=== PATIENT | female | born 1975 | race Caucasian/White ===

== ENCOUNTER 2017-11-08 19:00 | Emergency (ER) | payer BC ==
[~2017-11-08] VITALS: Ht 175.3 cm; Wt 74.1 kg
[~2017-11-08 19:00] MED LIST: ALBUAER2 INH; BCPILLS PO; MELA1TAB49 PO; PROP10TA7 PO; SNG10 PO; SPIR25TA PO; SPT/ PO; TRAM-10 PO; TZRCR160 TOP
[2017-11-08 19:15] VITALS: TEMP 36.7; Ht 175.3 cm; Wt 74.1 kg
[2017-11-08] MEDS ORDERED: ASPIRIN 81 MG CHEW PO STA (20:37)
--- NOTE | 2017-11-08 20:47 | EMERGENCY ROOM VISIT NOTE ---
History Report prepared by Portia: Conrad Layne Under the Supervision of: Dr. Bam Richmond M.D. First contact with patient: 20:19 Chief Complaint: SHORTNESS OF BREATH Stated Complaint: SOB Nursing Triage Summary: patient has been having SOB for about a week. started with dry cough in the middle of the night. Sunday spoke to Josue. started on prednisone and abluterol thougth it was asthma. 48 hours went to PCP and told to continue started a z pack. today continues to feel like she is unable to catch her breath. steroids are done and she still feels like she is unable to catch her breath or constantly feels like she is walking up the stairs. family history of blood clots. History of Present Illness The patient is a 42 year old female who presents to the Emergency Room with complaints of constant shortness of breath beginning a week ago. The patient states her symptoms began with a dry cough that prevented her from sleeping. 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 The patient notes she would get extremely short of breath. She states she went to the walk-in clinic and was told it was a three hour wait. The patient reports she did not get evaluated and called a telehealth doctor through her insurance. She notes she has a history of asthma. The patient states since she was not wheezing, she was given a 6 day cycle of prednisone and told to use her inhaler four times a day. She reports she followed up with her PCP and was told to continue the prednisone and inhaler. The patient notes she was given a Z-pack just to be safe. She states she finished the prednisone today, and she is still having symptoms. The patient reports her pain is more in her back, and she occasionally gets lightheaded. She notes she has taken control for the past 27 years. The patient states she had a BMP, CBC, and pertussis test completed at her PCP. Review of her CBC and BMP completed on show a WBC of 14.8 with 67.5% neutrophile, otherwise, the results were within normal limits. She reports her mother has a history of blood clots; the first time was from control, and the second time was from a car accident. The patient notes a history of arthritis. She denies chest pain, coughing up blood, recent surgery, recent travel, being tested for clotting ability, loss of consciousness, blood in stool, blood in urine, and the chance of . Source of History: patient Onset: a week ago Position: other (global) Quality: other (SOB) Timing: constant Modifying Factors (Worsening): exertion Associated Symptoms: + cough, + back pain, No LOC, No chest pain Note: Associated symptoms: mild lightheadedness Denies: wheezing, coughing up blood, recent surgery, recent travel, being tested for clotting ability, loss of consciousness, blood in stool, blood in urine, and the chance of Review of Systems See HPI for pertinent positives and negatives. A total of ten systems were reviewed and were otherwise negative. Past Medical & Surgical Medical Problems: (1) Arthritis (2) Asthma Family History Blood clots Social History Smoking Status: Never Smoker Alcohol Use: occasionally Housing Status: lives with family Current/Historical Medications Scheduled Albuterol (Ventolin), 2 PUFFS INH QID PRN Azithromycin (Azithromycin), 250 MG PO DIRECTED Control Pills ( Control Pills), 1 TAB PO DAILY Montelukast (Singulair *), 10 MG PO DAILY Spironolactone (Spironolactone), 25 MG PO QPM Scheduled PRN Albuterol Sulf (Albuterol Sulfate), 2.5 AMP NEB Q4 PRN for SOB/Wheezing Benzonatate (Tessalon Perles), 1 CAP PO TID PRN for Cough Cyclobenzaprine HCl (Cyclobenzaprine HCl), 10 MG PO DAILY PRN for Muscle Spasms Diclofenac Potassium (Diclofenac Potassium), 50 MG PO Q8 PRN for Pain Rizatriptan Benzoate (Rizatriptan Benzoate), 10 MG PO DIRECTED PRN for Headache Allergies Coded Allergies: Propranolol (Unverified Allergy, Unknown, THROAT CLOSES, 11/08/17) Physical Exam Vital Signs Date Time Temp Pulse Resp B/P (MAP) Pulse Ox O2 Delivery O2 Flow Rate FiO2 11/09/17 00:10 73 16 148/84 99 11/08/17 22:54 78 18 164/90 98 Room Air 11/08/17 21:03 77 11/08/17 19:15 36.7 85 20 185/97 97 Room Air Physical Exam Physical Exam GENERAL: She is oriented to person, place, and time. She appears well- developed and well-nourished. She does not appear distressed. ____ HENT: Exam performed. Head: Normocephalic and atraumatic. Right Ear: External ear normal. No mastoid tenderness. Left Ear: External ear normal. No mastoid tenderness. Mouth/Throat: The oropharynx is clear and moist. No trismus in the jaw. No dental abscesses or uvula swelling. No oropharyngeal exudate or tonsillar abscesses. ____ EYES: Conjunctivae and EOM are normal. Pupils are equal, round, and reactive to light. Right eye exhibits no discharge. Left eye exhibits no discharge. No scleral icterus. ____ NECK: Normal range of motion. Neck supple. No JVD present. No spinous process tenderness present. No carotid bruit present. No rigidity. No tracheal deviation and normal range of motion present. No Brudzinski's sign and no Kernig 's sign noted. ____ CV: Normal rate, regular rhythm, normal heart sounds and intact distal pulses. There is no peripheral edema. Palpable radial pulses bue. ____ PULM/CHEST: Effort normal and breath sounds normal. No respiratory distress. No stridor. She has no wheezes. She has no rales. Chest Wall: She exhibits no tenderness. ____ ABD: The abdomen is soft. Bowel sounds are normal. She has no distension. No mass is present. There is no tenderness. There is no rebound, no guarding, no Miramontes's sign and no tenderness at McBurney's point. Rovsig negative MUSC/SKEL: Normal range of motion. There is no peripheral edema, tenderness or deformity. LYMPH: No cervical adenopathy. ____ NEURO: She is alert and oriented to person, place, and time. She has normal strength. No cranial nerve deficit or sensory deficit. Coordination and gait normal. GCS eye subscore is 4. GCS verbal subscore is 5. GCS motor subscore is 6. cerbellar tests wnl. ____ SKIN: Skin is warm and dry. She is not diaphoretic. ____ PSYCH: She has a normal mood and affect. Her behavior is normal. Judgment and thought content normal. ____ Medical Decision & Procedures ER Provider Diagnostic Interpretation: Radiology results as stated below per my review and radiologist interpretation: (CHEST FOR PE) ANGIO WITH CT DOSE: 189.56 mGy.cm HISTORY: 42 years-old Female presents with acute shortness of breath TECHNIQUE: Multiple CTA images of the chest were obtained after the intravenous administration of 88 ml Optiray 320. Coronal and sagittal MIPS were obtained from the axial data set and were submitted for review. A dose lowering technique was utilized adhering to the principles of ALARA. COMPARISON: CT abdomen and pelvis 07/24/2015. FINDINGS: CTA: Heart is normal in size without pericardial effusion. Thoracic aorta is normal in both course and caliber without aneurysm or dissection. The imaged great vessels appear patent. The pulmonary arterial tree is well-opacified to the level of the subsegmental branches and demonstrates no focal filling defects to suggest pulmonary thromboembolic disease. CT CHEST: Thyroid is homogeneous without dominant nodule. No pathologic adenopathy. The breast parenchyma appears homogeneous and unremarkable. There is no pneumothorax, pleural effusion, focal airspace consolidation or overt pulmonary edema. No suspicious pulmonary nodules or masses. Lungs appear clear. Central airways are patent. Ovoid 1.8 x 1.0 cm low attenuating lesion of the anterior right hepatic lobe abutting the middle hepatic vein is unchanged suggesting hepatic cyst. No acute abnormality of the imaged upper abdomen. Soft tissues are unremarkable. The bones appear intact. IMPRESSION: 1. No acute intrathoracic abnormality identified, specifically no acute aortic pathology or evidence of pulmonary thromboembolic disease. 2. No lobar airspace consolidation to suggest pneumonia. The above report was generated using voice recognition software. It may contain grammatical, syntax or spelling errors. Electronically signed by: Kt Mcdaniel M.D. 11/08/2017 10:37 PM Dictated Date/Time: 11/08/2017 10:31 PM Laboratory Results 11/08/17 20:30 Red Blood Count 4.46, Mean Corpuscular Volume 91.3, Mean Corpuscular Hemoglobin 30.7, Mean Corpuscular Hemoglobin Concent 33.7, Mean Platelet Volume 10.2, Neutrophils (%) (Auto) 77.3, Lymphocytes (%) (Auto) 16.2, Monocytes (%) (Auto) 5.8, Eosinophils (%) (Auto) 0.2, Basophils (%) (Auto) 0.2, Neutrophils # (Auto) 9.53, Lymphocytes # (Auto) 2.00, Monocytes # (Auto) 0.71, Eosinophils # (Auto) 0.02, Basophils # (Auto) 0.03 11/08/17 20:30 11/08/17 21:51 Test 11/08/17 20:30 11/08/17 21:00 11/08/17 23:49 White Blood Count 12.33 K/uL (4.8-10.8) Red Blood Count 4.46 M/uL (4.2-5.4) Hemoglobin 13.7 g/dL (12.0-16.0) Hematocrit 40.7 % (37-47) Mean Corpuscular Volume 91.3 fL (80-100) Mean Corpuscular Hemoglobin 30.7 pg (25-34) Mean Corpuscular Hemoglobin Concent 33.7 g/dl (32-36) Platelet Count 439 K/uL (130-400) Mean Platelet Volume 10.2 fL (7.4-10.4) Neutrophils (%) (Auto) 77.3 % Lymphocytes (%) (Auto) 16.2 % Monocytes (%) (Auto) 5.8 % Eosinophils (%) (Auto) 0.2 % Basophils (%) (Auto) 0.2 % Neutrophils # (Auto) 9.53 K/uL (1.4-6.5) Lymphocytes # (Auto) 2.00 K/uL (1.2-3.4) Monocytes # (Auto) 0.71 K/uL (0.11-0.59) Eosinophils # (Auto) 0.02 K/uL (0-0.5) Basophils # (Auto) 0.03 K/uL (0-0.2) RDW Standard Deviation 43.8 fL (36.4-46.3) RDW Coefficient of Variation 13.1 % (11.5-14.5) Immature Granulocyte % (Auto) 0.3 % Immature Granulocyte # (Auto) 0.04 K/uL (0.00-0.02) Anion Gap 6.0 mmol/L (3-11) Est Creatinine Clear Calc Drug Dose 79.0 ml/min Estimated GFR () 83.5 Estimated GFR (Non- 72.0 BUN/Creatinine Ratio 16.0 (10-20) Calcium Level 8.9 mg/dl (8.5-10.1) Urine Color YELLOW Urine Appearance CLEAR (CLEAR) Urine pH 6.5 (4.5-7.5) Urine Specific [place] 1.009 (1.000-1.030) Urine Protein NEG (NEG) Urine Glucose (UA) NEG (NEG) Urine Ketones NEG (NEG) Urine Occult Blood NEG (NEG) Urine Nitrite NEG (NEG) Urine Bilirubin NEG (NEG) Urine Urobilinogen NEG (NEG) Urine Leukocyte Esterase NEG (NEG) Urine Test NEG (NEG) Troponin I < 0.015 ng/ml (0-0.045) Laboratory results reviewed by me Medications Administered Medications (Trade) Dose Ordered Sig/Kay Route Start Time Stop Time Status Last Admin Dose Admin Aspirin (Aspirin Chew) 324 mg NOW STAT PO 11/08/17 20:37 11/08/17 20:47 DC 11/08/17 21:21 324 MG ECG Indication: SOB/dyspnea Rate (beats per minute): 78 Rhythm: sinus rhythm Findings: no acute ischemic change, other ([place], QRS, QTc are all within normal limits, no ST depression or elevation) Change: Patient's electrocardiogram was interpreted by me. ED Course 2033: The patient was evaluated in room C10. A complete history and physical exam was performed. 2036: Ordered Aspirin 324mg PO 2307: I reevaluated the patient. Vital signs are stable. Physical exam within normal limits. Lungs clear to auscultation bilaterally. I explained to her that her CT was within normal limits. Labs show mild leukocytosis that is likely due to recent prednisone use, improved from previous labs drawn by [facility].. Potassium slightly low, replaced in the emergency department. I discussed that her troponin will be repeated, and if it is normal , the patient will be discharged. She will be discharge on albuterol solution and cough suppressants. DISCHARGE - Plan of care discussed with patient and questions answered. The patient was given both verbal and printed discharge instructions. The patient verbalized understanding and ability to comply. The patient is to seek outpatient follow up as noted in the discharge instructions. The patient verbalized understanding and ability to comply. The patient is discharged in stable condition. The patient was instructed to return for worsening symptoms. 0041: Vital signs stable. Lungs clear to auscultation. No chest pain or difficulty breathing. Patient resting comfortably. Troponin repeat negative. Medical Decision I reevaluated the patient. Vital signs are stable. Physical exam within normal limits. Lungs clear to auscultation bilaterally. I explained to her that her CT was within normal limits. Labs show mild leukocytosis that is likely due to recent prednisone use, improved from previous labs drawn by [facility].. Potassium slightly low, replaced in the emergency department. I discussed that her troponin will be repeated, and if it is normal, the patient will be discharged. She will be discharge on albuterol solution and cough suppressants. DISCHARGE - Plan of care discussed with patient and questions answered. The patient was given both verbal and printed discharge instructions. The patient verbalized understanding and ability to comply. The patient is to seek outpatient follow up as noted in the discharge instructions. The patient verbalized understanding and ability to comply. The patient is discharged in stable condition. The patient was instructed to return for worsening symptoms. Impression Primary Impression: Dyspnea Additional Impression: URI (upper respiratory infection) Scribe Attestation The scribe's documentation has been prepared under my direction and personally reviewed by me in its entirety. I confirm that the note above accurately reflects all work, treatment, procedures, and medical decision making performed by me. The chart was completed utilizing [employer] voice recognition software. Grammatical errors, random word insertions, pronoun errors, and incomplete sentences are an occasional consequence of this system due to software limitations, ambient noise, and hardware issues. Any formal questions or concerns about the content, text, or information contained within the body of this dictation should be directly addressed to the physician for clarification. Departure Information Prescriptions Benzonatate (TESSALON PERLES) 100 Mg Cap 1 CAP PO TID Y for Cough for 7 Days, #21 CAP Prov: Bam Richmond M.D. 11/09/17 Albuterol Sulf (Albuterol Sulfate) 2.5 Mg/3 Ml Nebu 2.5 AMP NEB Q4 Y for SOB/Wheezing, #30 AMP Prov: Bam Richmond M.D. 11/09/17 Referrals Horace Yee III, M.D. (PCP) Patient Instructions My [facility] Problem Qualifiers Primary Impression: Dyspnea Dyspnea type: unspecified Qualified Codes: R06.00 - Dyspnea, unspecified Additional Impression: URI (upper respiratory infection) URI type: unspecified URI Qualified Codes: J06.9 - Acute upper respiratory infection, unspecified
[2017-11-08 21:10] LABS: BASO % 0.2 %; BASO ABS # 0.03 K/uL (0-0.2); EOS % 0.2 %; EOS ABS # 0.02 K/uL (0-0.5); HEMATOCRIT 40.7 % (37-47); HEMOGLOBIN 13.7 g/dL (12.0-16.0); IG# 0.04 K/uL (0.00-0.02); LYMPH % 16.2 %; MEAN CELL VOLUME 91.3 fL (80-100); MEAN CORPUSCULAR HEMOGLOBIN 30.7 pg (25-34); MEAN CORPUSCULAR HGB CONC 33.7 g/dl (32-36); MEAN PLATELET VOLUME 10.2 fL (7.4-10.4); MONO % 5.8 %; MONO ABS # 0.71 K/uL (0.11-0.59); NEUT % 77.3 %; NEUT ABS # 9.53 K/uL (1.4-6.5); PLATELET COUNT 439 K/uL (130-400); RED CELL DISTRIBUTION WIDTH CV 13.1 % (11.5-14.5); RED CELL DISTRIBUTION WIDTH SD 43.8 fL (36.4-46.3); WHITE BLOOD COUNT 12.33 K/uL (4.8-10.8)
[2017-11-08] MEDS ORDERED: AZIT-57 PO (21:10)
[2017-11-08] MEDS ORDERED: SPR25 PO (21:10)
[2017-11-08] MEDS ORDERED: RIZA1TAB11 PO (21:10)
[2017-11-08] MEDS ORDERED: CYCL10TA7 PO (21:10)
[2017-11-08] MEDS ORDERED: CTF50 PO (21:10)
[2017-11-08 21:30] LABS: BLOOD UREA NITROGEN 15 mg/dl (7-18); CALCIUM 8.9 mg/dl (8.5-10.1); CARBON DIOXIDE 24 mmol/L (21-32); CREATININE 0.97 mg/dl (0.60-1.20); GLUCOSE 91 mg/dl (70-99); SODIUM 133 mmol/L (136-145)
[2017-11-08] MEDS ORDERED: OPTIRAY 320 IV PRN (22:00)
--- NOTE | 2017-11-08 22:38 | DIAGNOSTIC IMAGING REPORT ---
(CHEST FOR PE) ANGIO WITH CT DOSE: 189.56 mGy.cm HISTORY: 42 years-old Female presents with acute shortness of breath TECHNIQUE: Multiple CTA images of the chest were obtained after the intravenous administration of 88 ml Optiray 320. Coronal and sagittal MIPS were obtained from the axial data set and were submitted for review. A dose lowering technique was utilized adhering to the principles of ALARA. COMPARISON: CT abdomen and pelvis 07/24/2015. FINDINGS: CTA: Heart is normal in size without pericardial effusion. Thoracic aorta is normal in both course and caliber without aneurysm or dissection. The imaged great vessels appear patent. The pulmonary arterial tree is well-opacified to the level of the subsegmental branches and demonstrates no focal filling defects to suggest pulmonary thromboembolic disease. CT CHEST: Thyroid is homogeneous without dominant nodule. No pathologic adenopathy. The breast parenchyma appears homogeneous and unremarkable. There is no pneumothorax, pleural effusion, focal airspace consolidation or overt pulmonary edema. No suspicious pulmonary nodules or masses. Lungs appear clear. Central airways are patent. Ovoid 1.8 x 1.0 cm low attenuating lesion of the anterior right hepatic lobe abutting the middle hepatic vein is unchanged suggesting hepatic cyst. No acute abnormality of the imaged upper abdomen. Soft tissues are unremarkable. The bones appear intact. IMPRESSION: 1. No acute intrathoracic abnormality identified, specifically no acute aortic pathology or evidence of pulmonary thromboembolic disease. 2. No lobar airspace consolidation to suggest pneumonia. The above report was generated using voice recognition software. It may contain grammatical, syntax or spelling errors. Electronically signed by: Kt Mcdaniel M.D. 11/08/2017 10:37 PM Dictated Date/Time: 11/08/2017 10:31 PM
[2017-11-09] MEDS ORDERED: POTASSIUM CHLORIDE 10 MEQ TABCR PO STA (00:32)
[2017-11-09] MEDS ORDERED: ALBINS NEB (00:36)
[2017-11-09] MEDS ORDERED: BENZ100C18 PO (00:37)
[2017-11-09 00:49] VITALS: BP 131/92; PULSE 72; O2SAT 96
== END 2017-11-09 00:54 | disposition home or self-care (01) ==
LOC: C.EDB 19:01 → C.EDC 11-09 00:54
DX: R06.00 Dyspnea, unspecified (principal); J06.9 Acute upper respiratory infection, unspecified; M19.90 Unspecified osteoarthritis, unspecified site; J45.909 Unspecified asthma, uncomplicated